=== PATIENT | female | born 1985 | race Caucasian/White ===

== ENCOUNTER 2018-03-05 11:16 | Inpatient (IN) | payer OTHER ==
[2018-03-05 12:16] LABS: ADD MAN DIFF? NO
[2018-03-05 12:20] LABS: WHITE BLOOD COUNT 8.6 10^3/ul (4.8-10.8)
[2018-03-05 12:20] LABS: BASOPHILS % 0.3 % (0.0-2.0); EOSINOPHILS % 0.5 % (0.0-7.0); HEMATOCRIT 33.7 % (37.0-47.0); LYMPHOCYTES # 1.7 10^3/ul (0.8-2.9); LYMPHOCYTES % 19.6 % (15.0-51.0); MEAN CORPUSCULAR HEMOGLOBIN 29.3 pg (29.0-33.0); MEAN CORPUSCULAR HGB CONC 32.6 g/dl (32.0-37.0); MEAN CORPUSCULAR VOLUME 89.6 fl (82.0-101.0); MEAN PLATELET VOLUME 10.1 fl (7.4-10.4); MONOCYTE # 0.7 10^3/ul (0.3-0.9); MONOCYTES % 7.5 % (0.0-11.0); NEUTROPHIL # 6.2 10^3/ul (1.6-7.5); NEUTROPHILS % 71.3 % (39.0-77.0); PLATELET COUNT 196 10^3/UL (140-415); RED BLOOD COUNT 3.76 10^6/ul (4.20-5.40); RED CELL DISTRIBUTION WIDTH 13.8 % (11.5-14.5)
[2018-03-05 12:40] LABS: INR 0.82; PROTIME 11.4 Sec (11.9-14.9); PT RATIO 0.9
[2018-03-05 12:41] LABS: PARTIAL THROMBOPLASTIN TIME 24.7 Sec (23.0-35.0)
[2018-03-05 12:51] LABS: ALANINE AMINOTRANSFERASE 23 IU/L (13-69); ALBUMIN 3.3 g/dl (3.3-4.9); ALBUMIN/GLOBULIN RATIO 0.97; ALKALINE PHOSPHATASE 241 IU/L (42-121); ANION GAP 7 (5-13); ASPARTATE AMINO TRANSFERASE 25 IU/L (15-46); BILIRUBIN,INDIRECT 0.3 mg/dl (0-1.1); BILIRUBIN,TOTAL 0.3 mg/dl (0.2-1.3); BLOOD UREA NITROGEN 7 mg/dl (7-20); CALCIUM 9.4 mg/dl (8.4-10.2); CARBON DIOXIDE 23 mmol/L (21-31); CHLORIDE 106 mmol/L (97-110); GLUCOSE 76 mg/dl (70-220); SODIUM 136 mmol/L (135-144); TOTAL PROTEIN 6.7 g/dl (6.1-8.1); URIC ACID 4.2 mg/dl (3.1-7.9)
[2018-03-05 13:00] LABS: ADD UMIC NO; UR ASCORBIC ACID NEGATIVE (NEGATIVE); UR BACTERIA FEW /HPF (NONE SEEN); UR BILIRUBIN (Dip) NEGATIVE (NEGATIVE); UR BLOOD (Dip) NEGATIVE (NEGATIVE); UR CLARITY SLIGHTLY CLOUDY (CLEAR); UR COLOR YELLOW (YELLOW); UR GLUCOSE (Dip) NEGATIVE (NEGATIVE); UR KETONES (Dip) NEGATIVE (NEGATIVE); UR LEUKOCYTE ESTERASE (Dip) NEGATIVE Leu/ul (NEGATIVE); UR NITRITE (Dip) NEGATIVE (NEGATIVE); UR RBC 0 /HPF (0-5); UR SPECIFIC GRAVITY (Dip) 1.008 (1.003-1.030); UR SQUAMOUS EPITHELIAL CELL MODERATE /HPF (FEW); UR TOTAL PROTEIN (Dip) NEGATIVE (NEGATIVE); UR UROBILINOGEN (Dip) NEGATIVE (NEGATIVE); UR WBC 11 /HPF (0-5)
[2018-03-05 14:54] LABS: HEPATITIS B SURFACE ANTIGEN NEGATIVE (NEGATIVE)
[2018-03-05] MEDS: LACTATED RINGER'S 1,000 ML IV* (14:58)
[2018-03-05] MEDS: MAGNESIUM SULFATE 4 GM/100 ML 100 ML IV (14:59)
[2018-03-05] MEDS ORDERED: LIDOCAINE 1% (MPF) 30 ML INJ INJ (15:00)
[2018-03-05] MEDS ORDERED: CARBOPROST 250 MCG INJ IM (15:00)
[2018-03-05] MEDS ORDERED: METHYLERGONOVINE 0.2 MG INJ IM (15:00)
[2018-03-05] MEDS ORDERED: MISOPROSTOL 200 MCG TAB PR (15:00)
[2018-03-05] MEDS ORDERED: CA GLUCONATE (GM) 10% 10ML INJ IV (15:00)
[2018-03-05] MEDS: MAGNESIUM SULFATE 20 GM/500 ML 500 ML IV (15:30)
[2018-03-05] MEDS: OXYTOCIN 30 UNITS/LR 500 ML IV (15:48)
[2018-03-05 18:54] LABS: MAGNESIUM 4.5 mg/dl (1.7-2.5)
[2018-03-05 21:32] LABS: RAPID PLASMA REAGIN NONREACTIVE (NR)
[2018-03-05] MEDS: ACETAMINOPHEN 325 MG TAB PO (22:08)
[2018-03-06 01:47] LABS: MAGNESIUM 4.8 mg/dl (1.7-2.5)
[2018-03-06] MEDS: LACTATED RINGER'S 1,000 ML IV* ×2 (02:30→16:07)
[2018-03-06] MEDS: MAGNESIUM SULFATE 20 GM/500 ML 500 ML IV ×3 (02:32→22:45)
[2018-03-06 06:34] LABS: MAGNESIUM 5.5 mg/dl (1.7-2.5)
[2018-03-06] MEDS: ACETAMINOPHEN 325 MG TAB PO (07:33)
[2018-03-06] MEDS: OXYTOCIN 30 UNITS/LR 500 ML IV (08:56)
[2018-03-06 13:51] LABS: MAGNESIUM 5.3 mg/dl (1.7-2.5)
[2018-03-06 19:01] LABS: MAGNESIUM 5.9 mg/dl (1.7-2.5)
[2018-03-07 01:11] LABS: MAGNESIUM 6.1 mg/dl (1.7-2.5)
[2018-03-07] MEDS: CEFAZOLIN 2 GM/50 ML (PMX) 50 ML IVPB (01:45)
[2018-03-07] MEDS ORDERED: FENTAnyl 2MCG/ML-ROPIV 0.2% 100 ML (02:13)
[2018-03-07] MEDS ORDERED: NALOXONE (0.4 MG/ML) INJ IV (02:30)
[2018-03-07] MEDS ORDERED: ONDANSETRON 4 MG INJ IV (02:30)
[2018-03-07] MEDS ORDERED: DIPHENHYDRAMINE 50 MG INJ IV (02:30)
[2018-03-07] MEDS: LACTATED RINGER'S 1,000 ML IV* ×4 (07:00→23:00)
[2018-03-07 07:34] LABS: MAGNESIUM 6.2 mg/dl (1.7-2.5)
[2018-03-07] MEDS: FENTAnyl 2MCG/ML-ROPIV 0.2% 100 ML BAG EPI ×2 (08:31→15:11)
[2018-03-07] MEDS: MAGNESIUM SULFATE 20 GM/500 ML 500 ML IV ×2 (08:48→20:54)
[2018-03-07 13:23] LABS: MAGNESIUM 7.5 mg/dl (1.7-2.5)
[2018-03-07] MEDS: LIDOCAINE 0.5% (SDV) 50 ML INJ INFIL (14:00)
[2018-03-07] MEDS: OXYTOCIN 30 UNITS/LR 500 ML IV ×2 (19:08→20:55)
[2018-03-07 19:55] LABS: MAGNESIUM 6.6 mg/dl (1.7-2.5)
[2018-03-07] MEDS: MINERAL OIL LIGHT 10 ML VIAL TOP (20:53)
[2018-03-07] MEDS ORDERED: OXYTOCIN 30 UNITS/LR 500 ML IV (23:30)
[2018-03-07] MEDS ORDERED: ZOLPIDEM 5 MG TAB PO (23:30)
[2018-03-07] MEDS ORDERED: MISOPROSTOL 200 MCG TAB PR (23:30)
[2018-03-07] MEDS ORDERED: CARBOPROST 250 MCG INJ IM (23:30)
[2018-03-07] MEDS ORDERED: METHYLERGONOVINE 0.2 MG INJ IM (23:30)
[2018-03-08] MEDS: IBUPROFEN 600 MG TAB PO ×4 (01:45→17:47)
[2018-03-08] MEDS: BENZOCAINE 20% 56 ML SPRAY TOP (01:48)
[2018-03-08] MEDS: OXYTOCIN 30 UNITS/LR 500 ML IV (01:48)
[2018-03-08] MEDS: WITCH HAZEL/GLYCERIN PAD PR (01:48)
[2018-03-08] MEDS: LANOLIN 7 GM TUBE TOP (01:49)
[2018-03-08 01:50] LABS: MAGNESIUM 4.3 mg/dl (1.7-2.5)
[2018-03-08] MEDS: MAGNESIUM SULFATE 20 GM/500 ML 500 ML IV ×2 (02:35→17:05)
[2018-03-08] MEDS: ACETAMINOPHEN 325 MG TAB PO (06:25)
[2018-03-08] MEDS: LACTATED RINGER'S 1,000 ML IV* ×2 (07:16→15:00)
[2018-03-08 07:20] LABS: WHITE BLOOD COUNT 15.3 10^3/ul (4.8-10.8)
[2018-03-08 07:20] LABS: HEMATOCRIT 27.1 % (37.0-47.0); MEAN CORPUSCULAR HEMOGLOBIN 29.6 pg (29.0-33.0); MEAN CORPUSCULAR HGB CONC 33.2 g/dl (32.0-37.0); MEAN CORPUSCULAR VOLUME 89.1 fl (82.0-101.0); PLATELET COUNT 150 10^3/UL (140-415); RED BLOOD COUNT 3.04 10^6/ul (4.20-5.40); RED CELL DISTRIBUTION WIDTH 14.3 % (11.5-14.5)
[2018-03-08 07:30] LABS: ADD MAN DIFF? YES; POSITIVE DIFF @See below
[2018-03-08 07:41] LABS: MAGNESIUM 4.2 mg/dl (1.7-2.5)
[2018-03-08 09:11] LABS: BAND NEUTROPHILS #M 2.4 10^3/ul (0.0-0.6); BAND NEUTROPHILS % (M) 16 % (0-4); EOSINOPHILS % (M) 1 % (0-7); LYMPHOCYTES #M 1.3 10^3/ul (0.8-2.9); LYMPHOCYTES % (M) 9 % (15-51); MONOCYTE #M 0.4 10^3/ul (0.3-0.9); MONOCYTES % (M) 3 % (0-11); PLATELET ESTIMATE NORMAL; POLYCHROMASIA 1+ (0-0); REACTIVE LYMPHOCYTES #M 0.1 10^3/ul (0.0-0.0); REACTIVE LYMPHOCYTES% (M) 1 % (0-0); SEG NEUT #M 11.1 10^3/ul (1.6-7.5); SEGMENTED NEUTROPHILS (M) % 70 % (39-77); SMUDGE%M 5 % (0-0)
[2018-03-08] MEDS: SENNA/DOCUSATE NA (8.6MG/50MG) TAB PO ×2 (10:54→21:11)
[2018-03-08 12:44] LABS: MAGNESIUM 4.2 mg/dl (1.7-2.5)
[2018-03-08] MEDS: FERROUS SULFATE (EC) 325 MG TAB PO (21:11)
[2018-03-09] MEDS: IBUPROFEN 600 MG TAB PO ×3 (00:49→11:45)
[2018-03-09] MEDS ORDERED: OXYCODONE/ASPIRIN (4.88/325) TAB PO (02:30)
[2018-03-09] MEDS: FERROUS SULFATE (EC) 325 MG TAB PO (08:26)
[2018-03-09] MEDS: SENNA/DOCUSATE NA (8.6MG/50MG) TAB PO (08:26)
[2018-03-09] MEDS: OXYCODONE/ASPIRIN (4.88/325) TAB PO (08:26)
[2018-03-09] MEDS: DIPHTH/TET/ACEL PERTUSS (ADULT) 0.5 ML VIAL IM* (09:00)
[2018-03-09 09:37] LABS: ADD MAN DIFF? NO
[2018-03-09 09:42] LABS: BASOPHILS % 0.3 % (0.0-2.0); EOSINOPHILS # 0.1 10^3/ul (0.0-0.5); HEMATOCRIT 27.4 % (37.0-47.0); HEMOGLOBIN 8.9 g/dl (12.0-16.0); LYMPHOCYTES # 1.6 10^3/ul (0.8-2.9); LYMPHOCYTES % 15.5 % (15.0-51.0); MEAN CORPUSCULAR HEMOGLOBIN 29.7 pg (29.0-33.0); MEAN CORPUSCULAR HGB CONC 32.5 g/dl (32.0-37.0); MEAN CORPUSCULAR VOLUME 91.3 fl (82.0-101.0); MONOCYTE # 0.5 10^3/ul (0.3-0.9); NEUTROPHIL # 8.1 10^3/ul (1.6-7.5); NEUTROPHILS % 77.6 % (39.0-77.0); PLATELET COUNT 194 10^3/UL (140-415); RED CELL DISTRIBUTION WIDTH 14.4 % (11.5-14.5)
[2018-03-09 09:42] LABS: WHITE BLOOD COUNT 10.4 10^3/ul (4.8-10.8)
== END 2018-03-09 12:40 | disposition home or self-care (01) | DRG 807 ==
LOC: OBT 11:16 → PP1 03-07 21:38 → L-D 11:16 → OBT 14:20 → L-D 14:20
PROC: 10E0XZZ Delivery of Products of Conception, External Approach (ICD-10-PCS; principal; 2018-03-07)
PROC: 0W8NXZZ Division of Female Perineum, External Approach (ICD-10-PCS; 2018-03-07)
PROC: 10907ZC Drainage of Amniotic Fluid, Therapeutic from Products of Conception, Via Natural or Artificial Opening (ICD-10-PCS; 2018-03-07)
DX: O13.4 Gestational [pregnancy-induced] hypertension without significant proteinuria, complicating childbirth (principal); O76 Abnormality in fetal heart rate and rhythm complicating labor and delivery; O63.0 Prolonged first stage (of labor); Z37.0 Single live birth; Z3A.38 38 weeks gestation of pregnancy
CPT/HCPCS: 62319; 76815; 76818; 80053; 81001; 81003; 83735; 84560; 85025; 85384; 85610; 85730; 86592; 86850; 86900; 86901; 87340; 90715; 99464